=== PATIENT | female | born 1975 | race Caucasian/White ===

== ENCOUNTER 2022-01-09 09:54 | Emergency (ER) | payer MEDICAID ==
[~2022-01-09] VITALS: Ht 172.7 cm; Wt 117.0 kg
[2022-01-09] MEDS ORDERED: GLIP5TAB12 PO (10:29)
[2022-01-09] MEDS ORDERED: SULF1TAB48 PO (10:29)
[2022-01-09] MEDS ORDERED: KETOROLAC 30MG/ML VIAL IV STA (10:33)
[2022-01-09] MEDS ORDERED: SODIUM CHLORIDE 0.9% 1,000 ML IV ONE (10:45)
[2022-01-09 11:16] LABS: BASOPHILS % 1.2 % (0.0-2.0); EOSINOPHILS % 1.9 % (0.0-5.0); HEMATOCRIT. 39.4 % (36.0-48.0); HEMOGLOBIN. 13.6 g/dL (12.0-16.0); LYMPHOCYTES % 38.1 % (20.0-50.0); MEAN CORPUSCULAR HEMOGLOBIN 30.9 pg (28.0-32.0); MEAN CORPUSCULAR VOLUME 89.7 fL (81.0-99.0); MEAN PLATELET VOLUME 8.3 fl (7.4-10.4); MONOCYTES % 6.1 % (2.0-8.0); NEUTROPHILS % 52.7 % (40.0-76.0); PLATELET 213 x1000/uL (130-400); RED BLOOD CELL COUNT 4.39 mill/uL (4.2-5.4)
[2022-01-09 11:17] LABS: CLARITY URINE CLEAR (CLEAR); COLOR URINE YELLOW (YELLOW); KETONES URINE NEGATIVE (NEGATIVE); LEUKOCYTE ESTERASE URINE 1+ (NEGATIVE); NITRITE URINE NEGATIVE (NEGATIVE); OCCULT BLOOD URINE NEGATIVE (NEGATIVE); PROTEIN URINE NEGATIVE (NEGATIVE)
[2022-01-09 11:26] LABS: CHLORIDE 112 mEq/L (98-107)
[2022-01-09 11:27] LABS: HCG SCREEN NEGATIVE
[2022-01-09] MEDS ORDERED: LEVOFLOXACIN 500MG PREMIX 100 ML IV NR (12:00)
[2022-01-09] MEDS ORDERED: CIPR-263 MT (12:17)
[2022-01-09] MEDS ORDERED: IBUP-2028 MT (12:17)
[2022-01-09 13:06] VITALS: BP 126/85
== END 2022-01-09 13:07 | disposition home or self-care (01) ==
LOC: ER 09:54
DX: N10 Acute pyelonephritis (principal); E11.9 Type 2 diabetes mellitus without complications; F41.9 Anxiety disorder, unspecified; F20.9 Schizophrenia, unspecified; F17.210 Nicotine dependence, cigarettes, uncomplicated; Z98.890 Other specified postprocedural states; Z88.5 Allergy status to narcotic agent; Z88.0 Allergy status to penicillin
CPT/HCPCS: 36415; 74176; 80053; 81003; 82962; 83690; 84703; 85025; 87086; 96361; 96365; 96375; 99284; J1885; J1956; J7030